=== PATIENT | female | born 1965 | race Two or more races ===

== ENCOUNTER → 2017-12-04 | Outpatient (CLI) | payer BC ==
[~2017-12-04] VITALS: Ht 162.6 cm; Wt 79.1 kg
[~2017-12-04] MED LIST: DILAUDID2 MG PO; FUROSEMIDE20 MG PO; IBUPROFEN800 MG PO; OLANZAPINE5 MG PO; REGLAN10 MG PO; SENEXON-S TABL1 EACH PO; TYLENOL REGULA325 MG PO
[2017-12-04 12:18] VITALS: BP 119/65
[2017-12-04 13:05] LABS: BASOPHIL (%) 0.3 % (0-1); EOSINOPHIL (%) 9.4 % (0-5); EOSINOPHIL COUNT 0.3 K/uL (0-0.3); HEMOGLOBIN 8.3 G/DL (11.9-15.5); IMMATURE GRANULOCYTE (%) 0.6 % (0.0-0.7); LYMPHOCYTE (%) 13.6 % (15-42); LYMPHOCYTE COUNT 0.5 K/uL (1.0-2.8); MCH 32.7 PG (29.0-34.0); MCHC 33.2 G/DL (30.0-36.0); MCV 98.4 FL (83-99); MONOCYTE (%) 12.2 % (3-12); MONOCYTE COUNT 0.4 K/uL (0-0.8); NEUTROPHIL (%) 63.9 % (45-76); NEUTROPHIL COUNT 2.3 K/uL (1.8-6.4); PLATELET COUNT 103 K/uL (156-360); RBC DIS.WIDTH-CV 12.9 % (11.8-14.6); RBC DIS.WIDTH-SD 45.6 % (39-53); RED BLOOD COUNT 2.54 M/uL (3.80-5.20); WHITE BLOOD COUNT 3.6 K/uL (4.1-10.2)
[2017-12-04 13:13] LABS: ALBUMIN 3.2 G/DL (3.2-4.8); CHLORIDE 102 MEQ/L (99-109); MAGNESIUM 1.5 mg/dl (1.3-2.7); POTASSIUM 3.4 MEQ/L (3.7-5.4); SODIUM 139 MEQ/L (136-147); TOTAL BILIRUBIN 0.4 MG/DL (0.0-1.0)
[2017-12-04 13:19] LABS: ALKALINE PHOSPHATASE 85 IU/L (3-129); ALT (GPT) 19 IU/L (3-49); AST (GOT) 22 IU/L (2-34); GFR ESTIMATE (CALCULATED) > 59 mL/min/; GLUCOSE 102 mg/dL (70-99); TOTAL PROTEIN 5.6 G/DL (6.4-8.3); UREA NITROGEN (BUN) 8 mg/dL (9-23)
== END | disposition home or self-care (01) ==
LOC: IVINF 10:30
PROVIDERS: Obstetrics & Gynecology Gynecologic Oncology
DX: C53.9 Malignant neoplasm of cervix uteri, unspecified (principal); D64.9 Anemia, unspecified; Z45.2 Encounter for adjustment and management of vascular access device
CPT/HCPCS: 36591; 80053; 83735; 85025; 86850; 86900; 86901

== ENCOUNTER 2018-01-04 10:43 | Inpatient (IN) | payer BC ==
[~2018-01-04] VITALS: Ht 162.6 cm; Wt 88.1 kg
[~2018-01-04 10:43] MED LIST changes: -DILAUDID2 MG PO; +DILAUDID4 MG PO
[2018-01-04] MEDS ORDERED: POTASSIUM CHLO20 ME1 PO (12:53)
[2018-01-04] MEDS ORDERED: MILK OF MAGN PO (12:53)
[2018-01-04] MEDS ORDERED: FENTANYL1 EAC3 TD (12:53)
[2018-01-04 13:33] LABS: HEMATOCRIT 29.7 % (36.0-46.0); HEMOGLOBIN 10.3 G/DL (11.9-15.5); MCH 31.7 PG (29.0-34.0); MCHC 34.7 G/DL (30.0-36.0); PLATELET COUNT 97 K/uL (156-360); RBC DIS.WIDTH-CV 14.2 % (11.8-14.6); RBC DIS.WIDTH-SD 47.5 % (39-53); WHITE BLOOD COUNT 7.4 K/uL (4.1-10.2)
[2018-01-04 13:34] LABS: MCV 91.4 FL (83-99); RED BLOOD COUNT 3.25 M/uL (3.80-5.20)
[2018-01-04 13:41] LABS: CHLORIDE 94 mEq/L (99-109); POTASSIUM 3.2 mEq/L (3.7-5.4); SODIUM 133 mEq/L (136-147)
[2018-01-04 13:43] LABS: GLUCOSE 95 mg/dL (70-99)
[2018-01-04 13:47] LABS: CREATININE 0.8 mg/dL (0.6-1.3); GFR ESTIMATE (CALCULATED) > 59 mL/min/; UREA NITROGEN (BUN) 11 mg/dL (9-23)
[2018-01-05 12:40] VITALS: BP 142/96
[2018-01-05] MEDS ORDERED: MORPHINE SULFAT15 M1 PO (13:01)
== END 2018-01-05 14:41 | disposition hospice, home (50) | DRG 948 ==
LOC: EME 10:43 → EDOF 13:23 → 5EAST 13:23 → ENRESERVTM 13:30 → ENRESERV 13:30 → 5EAST 15:13
PROVIDERS: Nurse Practitioner Family
DX: G89.3 Neoplasm related pain (acute) (chronic) (principal); C79.51 Secondary malignant neoplasm of bone; C79.89 Secondary malignant neoplasm of other specified sites; Z85.41 Personal history of malignant neoplasm of cervix uteri; Z90.710 Acquired absence of both cervix and uterus; Z92.3 Personal history of irradiation; Z92.21 Personal history of antineoplastic chemotherapy
CPT/HCPCS: 72131; 80048; 85027; 99281; 99285; J0780; J1170; J1644; J1885; J2060; J2405; J7030; J7050